=== PATIENT | female | born 1945 | race American Indian/Alaskan Native ===

== ENCOUNTER 2018-02-09 16:39 | Emergency (ER) | payer MEDICARE ==
[2018-02-09 17:56] VITALS: BP 119/71
--- NOTE | 2018-02-09 19:37 | Emergency Department Report ---
HPI - General Chief Complaint: Upper Respiratory Infection Time Seen by Provider: 02/09/18 19:10 - HPI HPI: Patient reported that she is having cough with chest tightness. Sore throat is a congestion and runny nose chest congestion for one week. She says she has a history of chronic bronchitis and she is on albuterol that she takes that she needs it. She says she took Tylenol with no relief. Chest tightness located to mid chest and 9 out of 10. Nothing makes it better and nothing makes it worse. Denies any history of heart disease. Denies any respiratory distress. Reports cough is dry with some wheezing. Denies any fever or chills. Denies any nausea or vomiting. Denies any abdominal pain. Patient with a history of diabetes and hypertension. She has stage III kidney disease and gout. History of left and right rotator cuff surgery and right knee surgery. She is a previous history of chest pain on with flareup of bronchitis. Denies any pain to extremities or facial area. Denies any headache. ED Past Medical Hx - Past Medical History Previous Medical History?: Yes Hx Hypertension: Yes Hx Diabetes: Yes Hx Renal Disease: Yes (third stage kidney disease) Additional medical history: Gout - Surgical History Past Surgical History?: Yes Additional Surgical History: L and R rotator cuff surgery, right knee surgery, right wrist fx and repair - Family History Family history: hypertension - Social History Smoking Status: Never Smoker Substance Use Type: Alcohol, Prescribed - Medications Home Medications: Home Medications Medication Instructions Recorded Confirmed Last Taken Type Amoxicillin/K Clav Tab [Augmentin 1 tab PO Q12HR 10 Days #20 tab 02/09/18 Unknown Rx 875 mg] Cetirizine HCl [ZyrTEC] 10 mg PO QAM 14 Days #14 tab.rapdis 02/09/18 Unknown Rx Potassium Chloride [K-Dur] 20 meq PO BID 1 Days #2 tab 02/09/18 Unknown Rx guaiFENesin/CODEINE [Robitussin AC] 5 ml PO Q8H PRN #75 oral.liqd 02/09/18 Unknown Rx predniSONE [Deltasone] 50 mg PO QDAY 3 Days #3 tab 02/09/18 Unknown Rx ED Review of Systems ROS: Stated complaint: COUGH/ROLANDA Other details as noted in HPI Comment: All other systems reviewed and negative Constitutional: no symptoms reported ENT: throat pain, congestion. denies: ear pain, dental pain Respiratory: cough, wheezing. denies: orthopnea, shortness of breath, SOB with exertion, SOB at rest, stridor Cardiovascular: chest pain. denies: palpitations, dyspnea on exertion, edema, syncope, paroxysmal nocturnal dyspnea Gastrointestinal: denies: abdominal pain, nausea, vomiting Genitourinary: denies: dysuria, hematuria Musculoskeletal: denies: back pain, joint swelling, arthralgia, myalgia Skin: denies: rash Neurological: denies: headache, abnormal gait, vertigo Physical Exam - Physical Exam Vital Signs: Vital Signs 02/09/18 17:51 Temperature 98.1 F Pulse Rate 86 Respiratory 18 Rate Blood Pressure 119/71 O2 Sat by Pulse 97 Oximetry General: This is a 72-year-old female well-nourished well-developed in no acute distress. Physical Exam: Head: Normocephalic, atraumatic, no abrasion, no bruising and no contusion. Eyes: Biateral pupils equal and reactive to light, bilateral EOM intact.. Bilateral conjunctival and sclera without injection, normal accommodation. No nystagmus Mouth: Mucosa moist, no pharyngeal exudate or erythema. No peritonsillar abscesses. Uvula is midline and oral airways patent. Ears: Bilateral TMs congested without erythema , bilateral EAC without any redness swelling or drainage. No mastoid bone tenderness Nose: Bilateral basilar mucosa congested with erythema and clear drainage, Maxillary and frontal sinuses non-tender to palpate. Neck: Supple, No Cervical adenopathy, full range of motion and no C-spine tenderness. No swelling or tracheal deviation normal reflexes Cardiovascular: S1, S2. Regular rate and rhythm. No murmur. Capillary refill is less then 3 seconds. Lungs: Dry cough, scattered wheezes then. No chest wall tenderness. No chest contusion. No bruising to chest. Abdomen: Non-tender to palpate in all quadrants, no guarding or rebound tenderness, positive bowel sounds in all quadrants. No CVA tenderness. No hernia, bruit or mass. No rigidity or distention. Extremities: No clubbing, cyanosis or edema. +2 pulses. No neurovascular compromise Skin: Clean, dry and intact. No rash or lesions. Psych: Normal mood and behavior ED Course Vital Signs 02/09/18 17:51 Temperature 98.1 F Pulse Rate 86 Respiratory 18 Rate Blood Pressure 119/71 O2 Sat by Pulse 97 Oximetry - Reevaluation(s) Reevaluation #1: 02/09/18 21:00 Patient given albuterol 5 mg and Atrovent 0.5 mg for bronchitis, Deltasone 60 mg by mouth, Tylenol with Codeine 10ml for cough and pain. Chemistries abnormal with potassium mildly decreased, sodium mildly decreased and she has BUN and creatinine is elevated but patient has chronic kidney disease stage III which she's been managed by diagnostic cardiac sonographer and her primary care doctor. He is given Levaquin 750 mg by mouth. Patient given 1 L of normal saline. She was also given Rocephin 1 g IM to cover bronchitis. CBC stable. Troponin normal. Also given potassium 40 mEq by mouth for hypokalemia. 02/09/18 21:44 Reevaluation #2: 02/09/18 21:39 feels better after medication. Chest x-ray normal. Lung Sounds are clear ED Medical Decision Making - Lab Data Result diagrams: 02/09/18 19:56 02/09/18 19:56 Lab Results 02/09/18 02/09/18 Range/Units 19:56 19:56 WBC 6.5 (4.5-11.0) K/mm3 RBC 4.92 (3.65-5.03) M/mm3 Hgb 13.7 (10.1-14.3) gm/dl Hct 42.2 (30.3-42.9) % MCV 86 (79-97) fl MCH 28 (28-32) pg MCHC 33 (30-34) % RDW 16.3 H (13.2-15.2) % Plt Count 162 (140-440) K/mm3 Lymph % (Auto) 26.3 (13.4-35.0) % [place] % (Auto) 10.2 H (0.0-7.3) % Eos % (Auto) 4.5 H (0.0-4.3) % Baso % (Auto) 0.8 (0.0-1.8) % Lymph # 1.7 (1.2-5.4) K/mm3 [place] # 0.7 (0.0-0.8) K/mm3 Eos # 0.3 (0.0-0.4) K/mm3 Baso # 0.1 (0.0-0.1) K/mm3 Seg Neutrophils % 58.2 (40.0-70.0) % Seg Neutrophils # 3.8 (1.8-7.7) K/mm3 Sodium 132 L (137-145) mmol/L Potassium 3.4 L (3.6-5.0) mmol/L Chloride 94.6 L (98-107) mmol/L Carbon Dioxide 27 (22-30) mmol/L Anion Gap 14 mmol/L BUN 19 H (7-17) mg/dL Creatinine 1.3 H (0.7-1.2) mg/dL Estimated GFR 49 ml/min BUN/Creatinine Ratio 15 % Glucose 107 H (65-100) mg/dL Calcium 8.8 (8.4-10.2) mg/dL Troponin T < 0.010 (0.00-0.029) ng/mL - EKG Data -: EKG Interpreted by Me (tendon physician in ER) EKG shows normal: sinus rhythm (68 bpm) Rate: normal - EKG Data Interpretation: no acute changes, normal EKG - Radiology Data Radiology results: report reviewed Chest x-ray revealed no acute cardiopulmonary processes - Medical Decision Making ED course: Patient here reports cough congestion and sore throat, chest tightness 1 week with history of bronchitis. Physical finding for wheezing and with dry cough. Patient with CBC stable, EKG normal sinus rhythm at 68, chest x-ray revealed no acute cardiopulmonary processes. BMP revealed patient with decrease in sodium, potassium and chloride. She has chronic stage III kidney disease with slight elevation in BUN and creatinine. Patient has been followed by diagnostic cardiac sonographer and primary care. She given Levaquin 750 mg by mouth emergency room to cover bronchitis. She was given 1 L of normal saline to correct sodium and chloride and 40 mEq of potassium to correct potassium. Patient given albuterol 5 mg and Atrovent 0.5 mg nebulizer, Deltasone 60 mg by mouth, Tylenol with codeine 10 mils for cough and pain. She reports that she was feeling better and her lungs sounds are clear after treatment. I discussed the patient and her lab results, x-ray results and that she will need to follow up with her primary care physician in 2 days follow-up bronchitis. She has albuterol at home so told her to take her albuterol every 6 hours 2 days and then as needed. Patient discharged home with her family prescription for Deltasone, guaifenesin with codeine for cough, Augmentin for bronchitis and Zyrtec to cover nasal congestion. Critical care attestation.: If time is entered above; I have spent that time in minutes in the direct care of this critically ill patient, excluding procedure time. ED Disposition Clinical Impression: Acute exacerbation of chronic bronchitis, Upper respiratory infection with cough and congestion, Hypokalemia, Hyponatremia Chronic kidney disease Qualifiers: Chronic kidney disease stage: unspecified stage Qualified Code(s): N18.9 - Chronic kidney disease, unspecified Disposition: - TO HOME OR SELFCARE Is pt being admited?: No Does the pt Need Aspirin: No Condition: Stable Instructions: Chronic Bronchitis (ED), Acute Cough (ED), Upper Respiratory Infection (ED), Chronic Kidney Disease (ED), Hypokalemia (ED), Hyponatremia (ED) Additional Instructions: Please take Augmentin for bronchitis. Do not drive or operate heavy machinery or take an guaifenesin with codeine as this medication causes drowsiness. Follow up with primary care physician in 2 days Prescriptions: Amoxicillin/K Clav Tab [Augmentin 875 mg] 1 tab PO Q12HR 10 Days #20 tab Cetirizine HCl [ZyrTEC] 10 mg PO QAM 14 Days #14 tab.rapdis guaiFENesin/CODEINE [Robitussin AC] 5 ml PO Q8H PRN #75 oral.liqd PRN Reason: Cough Potassium Chloride [K-Dur] 20 meq PO BID 1 Days #2 tab predniSONE [Deltasone] 50 mg PO QDAY 3 Days #3 tab Referrals: LUCY PACHECO MD [Primary Care Provider] - 3-5 Days follow-up with your, primary care physician [Other] - 02/11/18 Forms: Accompanied Note
[2018-02-09] MEDS ORDERED: ATROVENT IH ONE (19:39)
[2018-02-09] MEDS ORDERED: DELTASONE PO ONE (19:39)
[2018-02-09] MEDS ORDERED: TYLENOL/CODEINE PO ONE (19:39)
[2018-02-09] MEDS ORDERED: PROVENTIL IH ONE (19:39)
[2018-02-09 20:17] LABS: Basophils # (Auto) 0.1 K/mm3 (0.0-0.1); Basophils % (Auto) 0.8 % (0.0-1.8); Eosinophils # (Auto) 0.3 K/mm3 (0.0-0.4); Eosinophils % (Auto) 4.5 % (0.0-4.3); Hematocrit 42.2 % (30.3-42.9); Hemoglobin 13.7 gm/dl (10.1-14.3); Lymphocytes # (Auto) 1.7 K/mm3 (1.2-5.4); Lymphocytes % (Auto) 26.3 % (13.4-35.0); Mean Corpuscular HGB Conc 33 % (30-34); Mean Corpuscular Hemoglobin 28 pg (28-32); Mean Corpuscular Volume 86 fl (79-97); Monocytes # (Auto) 0.7 K/mm3 (0.0-0.8); Monocytes % (Auto) 10.2 % (0.0-7.3); Platelet Count 162 K/mm3 (140-440); Red Blood Count 4.92 M/mm3 (3.65-5.03); Red Cell Distribution Width 16.3 % (13.2-15.2)
--- NOTE | 2018-02-09 20:23 | XRay Report ---
FINAL REPORT EXAM: XR CHEST ROUTINE 2V HISTORY: Cough. wheezing, CP x 2 weeks TECHNIQUE: PA and lateral views of the chest PRIORS: None. FINDINGS: Lines, tubes, and devices: N/A Lungs and pleura: Trachea is normal in position. Lungs are clear of infiltrate, pleural effusion, vascular congestion, or pneumothorax. Cardiomediastinal silhouette: Cardiac and mediastinal silhouettes are unremarkable. Other: Bony structures are intact. IMPRESSION: No acute cardiopulmonary process seen.
[2018-02-09 20:27] LABS: BUN/Creatinine Ratio 15; Blood Urea Nitrogen 19 mg/dL (7-17); Calcium 8.8 mg/dL (8.4-10.2); Hemolysis Index 8
[2018-02-09] MEDS ORDERED: NACL 0.9% 1000 ML 1,000 ML IV ONE (20:30)
[2018-02-09] MEDS ORDERED: LEVAQUIN PO ONE (20:33)
[2018-02-09] MEDS ORDERED: K-DUR PO ONE (20:33)
== END 2018-02-09 22:00 | disposition home or self-care (01) ==
LOC: ED 16:39
DX: J20.9 Acute bronchitis, unspecified (principal); J06.9 Acute upper respiratory infection, unspecified; E87.6 Hypokalemia; E87.1 Hypo-osmolality and hyponatremia; I12.9 Hypertensive chronic kidney disease with stage 1 through stage 4 chronic kidney disease, or unspecified chronic kidney disease; E11.22 Type 2 diabetes mellitus with diabetic chronic kidney disease; N18.3 Chronic kidney disease, stage 3 (moderate)
CPT/HCPCS: 36415; 71046; 80048; 84484; 85025; 93005; 93010; 96360; 99284; J7030; J7512

== ENCOUNTER 2019-08-01 10:37 | Emergency (ER) | payer MEDICARE ==
[2019-08-01] MEDS ORDERED: KETOROLAC 30 MG/1 ML INJ IM ONE (11:12)
[2019-08-01] MEDS ORDERED: dexAMETHasone 20 MG/5 ML VIAL IM ONE (11:12)
--- NOTE | 2019-08-01 11:15 | Emergency Department Report ---
ED Back Pain/Injury HPI - General Chief Complaint: Extremity Injury, Lower Stated Complaint: SEVERE LEG PAIN Time Seen by Provider: 08/01/19 11:11 Source: patient Limitations: No Limitations - History of Present Illness Initial Comments: Pt reports BLE pain x weeks states she also has soreness in the lower back but denies any trauma denies any numbness or weakness pain worse with certain positions denies bowel/bladder dysfunction MD Complaint: back pain -: Gradual, week(s) (3) Similar Symptoms Previously: No Place: home Radiation: left leg, right leg Severity: severe Severity scale (0 -10): 7 Quality: sharp, stabbing Consistency: constant Improves With: immobilization Worsens With: none Associated Symptoms: denies other symptoms - Related Data Previous Rx's Medication Instructions Recorded Last Taken Type Amoxicillin/K Clav Tab [Augmentin 1 tab PO Q12HR 10 Days #20 tab 02/09/18 Unknown Rx 875 mg] Cetirizine HCl [ZyrTEC] 10 mg PO QAM 14 Days #14 tab.rapdis 02/09/18 Unknown Rx Potassium Chloride [K-Dur] 20 meq PO BID 1 Days #2 tab 02/09/18 Unknown Rx guaiFENesin/CODEINE [Robitussin AC] 5 ml PO Q8H PRN #75 oral.liqd 02/09/18 Unknown Rx predniSONE [Deltasone] 50 mg PO QDAY 3 Days #3 tab 02/09/18 Unknown Rx Gabapentin [Neurontin] 100 mg PO Q8HR #30 capsule 08/01/19 Unknown Rx Meloxicam [Mobic] 7.5 mg PO QDAY #30 tablet 08/01/19 Unknown Rx predniSONE [Deltasone] 40 mg PO QDAY #10 tab 08/01/19 Unknown Rx Allergies Allergy/AdvReac Type Severity Reaction Status Date / Time No Known Allergies Allergy Unverified 02/09/18 17:51 ED Review of Systems ROS: Stated complaint: SEVERE LEG PAIN Other details as noted in HPI Comment: All other systems reviewed and negative Musculoskeletal: as per HPI ED Past Medical Hx - Past Medical History Hx Hypertension: Yes Hx Diabetes: Yes Hx Renal Disease: Yes (third stage kidney disease) Additional medical history: Gout - Surgical History Additional Surgical History: L and R rotator cuff surgery, right knee surgery, right wrist fx and repair - Social History Smoking Status: Never Smoker Substance Use Type: Alcohol - Medications Home Medications: Home Medications Medication Instructions Recorded Confirmed Last Taken Type Amoxicillin/K Clav Tab [Augmentin 1 tab PO Q12HR 10 Days #20 tab 02/09/18 Unknown Rx 875 mg] Cetirizine HCl [ZyrTEC] 10 mg PO QAM 14 Days #14 tab.rapdis 02/09/18 Unknown Rx Potassium Chloride [K-Dur] 20 meq PO BID 1 Days #2 tab 02/09/18 Unknown Rx guaiFENesin/CODEINE [Robitussin AC] 5 ml PO Q8H PRN #75 oral.liqd 02/09/18 Unknown Rx predniSONE [Deltasone] 50 mg PO QDAY 3 Days #3 tab 02/09/18 Unknown Rx Gabapentin [Neurontin] 100 mg PO Q8HR #30 capsule 08/01/19 Unknown Rx Meloxicam [Mobic] 7.5 mg PO QDAY #30 tablet 08/01/19 Unknown Rx predniSONE [Deltasone] 40 mg PO QDAY #10 tab 08/01/19 Unknown Rx ED Physical Exam - General Limitations: No Limitations General appearance: alert, in no apparent distress - Head Head exam: Present: atraumatic, normocephalic - Eye Eye exam: Present: normal appearance - ENT ENT exam: Present: mucous membranes moist - Neck Neck exam: Present: normal inspection - Respiratory Respiratory exam: Present: normal lung sounds bilaterally. Absent: respiratory distress - Cardiovascular Cardiovascular Exam: Present: regular rate, normal rhythm. Absent: systolic murmur, diastolic murmur, rubs, gallop - GI/Abdominal GI/Abdominal exam: Present: soft, normal bowel sounds - Extremities Exam Extremities exam: Present: normal inspection, other (normal BL pedal pulses) - Back Exam Back exam: Present: normal inspection, full ROM, tenderness (over lumbar region diffusely ) - Neurological Exam Neurological exam: Present: alert, oriented X3, reflexes normal, other (+ SLR avinash on L). Absent: motor sensory deficit - Psychiatric Psychiatric exam: Present: normal affect, normal mood - Skin Skin exam: Present: warm, dry, intact, normal color. Absent: rash ED Course Vital Signs 08/01/19 10:52 Temperature 97.8 F Pulse Rate 78 Respiratory 18 Rate Blood Pressure 142/71 O2 Sat by Pulse 98 Oximetry ED Medical Decision Making - Radiology Data Radiology results: report reviewed, image reviewed degenerative changes - Medical Decision Making BLE pain, neuropathic sounding with intact neuro exam and no features of cauda equina some back discomfort imaging neg for fx but shows degenerative changes symptoms/exam not concerning for DVT ambulating around room on reassessment will give meds, ortho referral given toradol/decadron here - Differential Diagnosis muscle pain, sciatica, unlikely DVT Critical care attestation.: If time is entered above; I have spent that time in minutes in the direct care of this critically ill patient, excluding procedure time. ED Disposition Clinical Impression: Sciatica Qualifiers: Laterality: bilateral Qualified Code(s): M54.31 - Sciatica, right side; M54.32 - Sciatica, left side Disposition: TO HOME OR SELFCARE Is pt being admited?: No Condition: Good Instructions: Arthralgia (ED), Lumbar Radiculopathy (ED) Prescriptions: predniSONE [Deltasone] 40 mg PO QDAY #10 tab Meloxicam [Mobic] 7.5 mg PO QDAY #30 tablet Gabapentin [Neurontin] 100 mg PO Q8HR #30 capsule Referrals: PRIMARY CARE, [Primary Care Provider] - 3-5 Days RORY ENGEL MD [Staff Physician] - 3-5 Days Time of Disposition: 12:14
--- NOTE | 2019-08-01 12:05 | XRay Report ---
LUMBAR SPINE, 3 VIEWS INDICATION / CLINICAL INFORMATION: pain. COMPARISON: None available. FINDINGS: There is multilevel degenerative disc disease. Mild to moderate disc space narrowing with associated spondylitic changes seen throughout the lumbar spine with relatively sparing of the L2-L3 disc space. Posterior alignment is normal. No compression fracture is noted. There is prominent facet degenerati ve change of the lower lumbar spine as well. IMPRESSION: Mild to moderate multilevel degenerative disc disease with associated spondylitic change and facet degenerative change. Signer Name: Andreea Juárez MD Signed: 08/01/2019 12:01 PM Workstation Name: [id number]
[2019-08-01 12:44] VITALS: BP 139/83
== END 2019-08-01 12:44 | disposition home or self-care (01) ==
LOC: EDBD → ED 10:37
DX: M54.42 Lumbago with sciatica, left side (principal); I10 Essential (primary) hypertension; E11.9 Type 2 diabetes mellitus without complications
CPT/HCPCS: 72100; 96372; 99283; J1100; J1885